=== PATIENT | female | born 1960 | race Caucasian/White ===

== ENCOUNTER 2021-12-27 11:05 | Day surgery (SDC) | payer OTHER, SELFPAY ==
[~2021-12-27] VITALS: Ht 149.9 cm; Wt 54.4 kg
[2021-12-27 12:06] LABS: BASOPHILS # (AUTO) 0.1 K/uL (0.00-0.22); BASOPHILS % (AUTO) 0.8 % (0.0-2.0); EOSINOPHILS # (AUTO) 0.2 K/uL (0-0.4); EOSINOPHILS % (AUTO) 1.9 % (0.0-4.0); HEMOGLOBIN 9.6 g/dL (12.0-16.0); LYMPHOCYTES # (AUTO) 1.6 K/uL (2.5-16.5); MEAN CORPUSCULAR HEMOGLOBIN 32 pg (27-31); MEAN CORPUSCULAR HGB CONC 34 g/dL (33-37); MEAN CORPUSCULAR VOLUME 94.3 fL (80-94); MONOCYTES # (AUTO) 0.7 K/uL (0.8-1.0); MONOCYTES % (AUTO) 7.2 % (1.7-9.3); NEUTROPHILS # (AUTO) 6.6 K/uL (1.8-7.7); NEUTROPHILS % (AUTO) 72.1 % (42.2-75.2); PLATELET COUNT (AUTO) 280 K/uL (140-450); RED BLOOD CELL COUNT(AUTO) 2.97 MIL/uL (4.20-5.40); RED CELL DISTRIBUTION WIDTH 14.3 % (11.6-13.7); WHITE BLOOD COUNT (AUTO) 9.2 K/uL (4.8-10.8)
[2021-12-27] MEDS ORDERED: fentaNYL citrate 0.05 MG/ML VIAL ONE (14:16)
[2021-12-27] MEDS ORDERED: MORPHINE SULFATE 2 MG/ML SYR IVP PRN (14:50)
[2021-12-27] MEDS ORDERED: MORPHINE SULFATE 2 MG/ML SYR ONE (14:53)
[2021-12-27] MEDS ORDERED: fentaNYL citrate 0.05 MG/ML VIAL IVP ONE (15:00)
[2021-12-27] MEDS ORDERED: MORPHINE SULFATE 2 MG/ML SYR IVP ONE (15:05)
== END 2021-12-27 15:54 | disposition home or self-care (01) ==
LOC: MMU 11:05 → MDS 11:05
PROVIDERS: ATTEND Internal Medicine Gastroenterology
DX: R94.5 Abnormal results of liver function studies (principal); D64.9 Anemia, unspecified; Z87.891 Personal history of nicotine dependence; Z79.82 Long term (current) use of aspirin; Z79.899 Other long term (current) drug therapy
CPT/HCPCS: 36415; 47000; 76942; 85025; 85610; 85730; 87426; J2270; J3010; Q0092